=== PATIENT | female | born 1990 | race American Indian/Alaskan Native ===

== ENCOUNTER 2017-05-16 08:48 | Emergency (ER) | payer SELFPAY ==
[2017-05-16] MEDS ORDERED: BOOSTRIX IM ONE (10:19)
[2017-05-16 12:35] VITALS: BP 119/81
--- NOTE | 2017-05-16 15:30 | XRay Report ---
LEFT FOOT: Crush injury with pain. The bony architecture is intact. Bony alignment is normal. No soft tissue abnormalities are seen. The joint spaces appear preserved. IMPRESSION: Normal left foot.
== END 2017-05-16 13:18 | disposition home or self-care (01) ==
LOC: ED 08:48
DX: S90.212A Contusion of left great toe with damage to nail, initial encounter (principal); S97.82XA Crushing injury of left foot, initial encounter; W20.8XXA Other cause of strike by thrown, projected or falling object, initial encounter; Y93.89 Activity, other specified; Y92.89 Other specified places as the place of occurrence of the external cause; Y99.8 Other external cause status
CPT/HCPCS: 90471; 90715; 99283

== ENCOUNTER 2017-09-02 11:27 | Emergency (ER) | payer OTHER ==
[2017-09-02 11:37] VITALS: BP 138/86
[2017-09-02 14:20] LABS: Bacteria,Urine 1+ /HPF (Negative); Bilirubin,Urine NEG (Negative); Blood,Urine NEG (Negative); Ketones,Urine NEG (Negative); Leukocyte Esterase,Urine SM (Negative); Mucus,Urine FEW /HPF; Nitrite,Urine NEG (Negative); Protein,Urine <15 mg/dL mg/dL (Negative); Urobilinogen,Urine < 2.0 mg/dL (<2.0)
--- NOTE | 2017-09-02 14:24 | Emergency Department Report ---
HPI - General Chief Complaint: Urogenital-Female Time Seen by Provider: 09/02/17 14:24 - HPI HPI: She is a 27-year-old female with no prior medical history taking her medications are presented to the ED complaining of abnormal cycle this month. Patient states that she cycle was 07/26/2017 was normal. Patient states that this time the wrong bus 2 days ago she started some light spotting period and thought she was starting but has not seen her usual period these couple days. Patient got scared and thought she could be due to the fact that she had an ectopic in 2011 she wanted to be evaluated to check if she is . Patient denies any bleeding. She denies fevers/chills/nausea or vomiting/lower pelvic pain/vaginal discharge , dysuria. Patient did mention that every time she went to urinate her urine smelled foul ED Past Medical Hx - Past Medical History Previous Medical History?: No Additional medical history: sickle cell trait - Surgical History Additional Surgical History: ectopic - Social History Smoking Status: Never Smoker Substance Use Type: Marijuana - Medications Home Medications: Home Medications Medication Instructions Recorded Confirmed Last Taken Type Acetaminophen/Codeine [Tylenol #3] 1 tab PO Q6H PRN #12 tab 05/16/17 Unknown Rx Cephalexin [Keflex] 500 mg PO Q6HR #28 capsule 05/16/17 Unknown Rx Ibuprofen [Motrin] 600 mg PO Q8H PRN #15 tablet 05/16/17 Unknown Rx Sulfamethoxazole/Trimethoprim 1 each PO BID #14 tablet 09/02/17 Unknown Rx [Bactrim DS TAB] ED Review of Systems ROS: Stated complaint: ABD PAIN Other details as noted in HPI Constitutional: denies: chills, fever Eyes: denies: eye pain, eye discharge, vision change ENT: denies: ear pain, throat pain Respiratory: denies: cough, shortness of breath, wheezing Cardiovascular: denies: chest pain, palpitations Endocrine: no symptoms reported Gastrointestinal: denies: abdominal pain, nausea, diarrhea Genitourinary: denies: urgency, dysuria, discharge Musculoskeletal: denies: back pain, joint swelling, arthralgia Skin: denies: rash, lesions, pruritus Neurological: denies: headache, weakness, numbness, paresthesias, confusion Psychiatric: denies: anxiety, depression Hematological/Lymphatic: denies: easy bleeding, easy bruising Physical Exam - Physical Exam Vital Signs: Vital Signs 09/02/17 11:31 Temperature 97.9 F Pulse Rate 84 Respiratory 20 Rate Blood Pressure 138/86 O2 Sat by Pulse 100 Oximetry Physical Exam: GENERAL: Alert and oriented x3, no apparent distress, Normal Gait, atraumatic. HEAD: Head is normocephalic and a-traumatic. LUNGS: Symetrical with respiration, No wheezing, no rales or crackles, CTAB. HEART: S1, S2 present, regular rate and rhythm without murmur, no rubs, no gallops. Non tender to palpation ABDOMEN: No organomegaly was noted,Positive bowel sounds, soft, and non- distended. . Nontender to palpation on all Quadrants, NO CVA tenderness. GENITOURINARY: External genitalia without erythema, exudate or discharge. Vaginal vault is without discharge. Cervix is of normal color without lesion. Cervical os is closed. No bleeding noted. Uterus is noted to be of normal size and nontender. No cervical motion tenderness. No masses are palpated. The adnexa are without masses or tenderness. SKIN: Warm and dry, No lesions, No ulceration or induration present. ED Course Vital Signs 09/02/17 11:31 Temperature 97.9 F Pulse Rate 84 Respiratory 20 Rate Blood Pressure 138/86 O2 Sat by Pulse 100 Oximetry ED Medical Decision Making - Medical Decision Making 27-year-old female presents with uti and abnormal menses 1 time Urinalysis is positive for bacteria, U test negative I discussed this finding with the patient. I will send her home on antibiotics for UTI I discussed the patient to wait in observe her cycles. I discussed with patient and changes in lifestyle can change menstrual cycle in the absence of . Discussed patient will follow-up with [facility] for further workup whether or not if symptoms continue. Patient was a well-appearing young lady in no acute or respiratory distress upon my examination today shows normal findings. Patient states she understands and discharged as given and will follow up with [facility] I discussed the patient if she has any worsening symptoms or new symptoms arise to return to ED immediately. Critical care attestation.: If time is entered above; I have spent that time in minutes in the direct care of this critically ill patient, excluding procedure time. ED Disposition Clinical Impression: Abnormal short menstrual cycle UTI (urinary tract infection) Qualifiers: Urinary tract infection type: acute cystitis Hematuria presence: with hematuria Qualified Code(s): N30.01 - Acute cystitis with hematuria Disposition: TO HOME OR SELFCARE Is pt being admited?: No Does the pt Need Aspirin: No Condition: Stable Instructions: Dysfunctional Uterine Bleeding (ED), Urinary Tract Infection in Women (ED) Additional Instructions: Follow-up with your [facility] doctor if symptoms worsen pls return to ED Prescriptions: Sulfamethoxazole/Trimethoprim [Bactrim DS TAB] 1 each PO BID #14 tablet Referrals: PRIMARY MD BRENTON [Primary Care Provider] - 3-5 Days LACI BROWNLEE MD [Referring] - 3-5 Days [facility] [Outside] - 3-5 Days [facility] [Outside] - 3-5 Days Forms: Work/School Release Form(ED) Time of Disposition: 15:09
== END 2017-09-02 15:59 | disposition home or self-care (01) ==
LOC: ED 11:27
DX: N39.0 Urinary tract infection, site not specified (principal); F12.10 Cannabis abuse, uncomplicated
CPT/HCPCS: 81001; 81025; 99283